=== PATIENT | male | born 1985 | race Caucasian/White ===

== ENCOUNTER 2020-08-28 15:34 | Outpatient (REF) | payer OTHER, SELFPAY | END 2020-08-28 15:35 | disposition home or self-care (01) | LOC: HO.LAB 15:34 | PROVIDERS: Visit Provider Internal Medicine | DX: Z20.828 Contact with and (suspected) exposure to other viral communicable diseases (principal) | CPT/HCPCS: C9803; U0003 ==

== ENCOUNTER 2021-06-14 16:32 | Emergency (ER) | payer OTHER, SELFPAY ==
[2021-06-14 16:34] VITALS: BP 149/82; PULSE 101; RESP 18; TEMP 36.5; O2SAT 96; BMI 49.9
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
[2021-06-14] MEDS: Ketorolac Tromethamine 15 MG/ML VIAL 30 MG IM (17:21)
== END 2021-06-14 17:36 | disposition home or self-care (01) ==
PROVIDERS: Emergency Provider Emergency Medicine
DX: M54.6 Pain in thoracic spine (principal); M54.5 Low back pain; Z79.899 Other long term (current) drug therapy
CPT/HCPCS: 96372; 99284; J1885

== ENCOUNTER 2022-05-28 11:04 | Emergency (ER) | payer OTHER, SELFPAY ==
--- NOTE | ~2022-05-28 | CT_ITS ---
EXAMINATION: CT ABDOMEN AND PELVIS WITHOUT CONTRAST CLINICAL INFORMATION: Right lower quadrant abdominal pain. Rule out appendicitis COMPARISON: CT abdomen pelvis 12/01/2010 TECHNIQUE: Multidetector volumetric imaging was performed from the superior aspect of the liver through the pubic symphysis. Sagittal and coronal reformatted images were obtained on the technologist's workstation. This CT examination was performed using dose optimization techniques as appropriate, variously including the following: *Automated exposure control *Adjustment of mA and/or kV according to patient size (this includes techniques or standardized protocols for targeted exams where dose is matched to indication/reason for exam; i.e. extremities or head) *Use of iterative reconstruction technique DLP: 1008 mGy-cm FINDINGS: LUNG BASES: The visualized lung bases are unremarkable. LIVER, GALLBLADDER, AND BILIARY TREE: The liver is normal in size, shape, and attenuation. No focal hepatic lesion or biliary ductal dilatation is present. The gallbladder is unremarkable with no evidence of radiopaque gallstones, gallbladder wall thickening, or obvious pericholecystic inflammatory changes. PANCREAS: Unremarkable. SPLEEN: Unremarkable. ADRENAL GLANDS: Unremarkable. KIDNEYS AND URETERS: Subcentimeter hypodense probable cyst in the posterolateral right midpole, too small to characterize. No other renal lesion. No radiodense renal calculi. No hydronephrosis. No perinephric collection. BLADDER: Unremarkable. GASTROINTESTINAL TRACT: The small and large bowel are unremarkable. The appendix is unremarkable. ABDOMINAL WALL: No significant hernia is appreciated. LYMPH NODES: No lymphadenopathy. VASCULAR: Normal caliber abdominal aorta. PELVIC VISCERA: Unremarkable. OSSEOUS STRUCTURES: No acute fracture or suspicious osseous lesion. Geographic serpentine sclerosis in the anterior superior right femoral head characteristic of avascular necrosis without articular surface collapse or fragmentation. 1.3 cm sclerotic lesion that may represent chronic bone infarct, bone island or healed fibrous lesion in the left femoral neck, nonaggressive appearance and unchanged since 2010. CT/CT abdomen pelvis wo IV con IMPRESSION: 1. Normal appendix. No evidence of acute appendicitis or other acute intra-abdominal process. 2. 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 No articular surface collapse or fragmentation.
--- NOTE | ~2022-05-28 | XR_ITS ---
EXAMINATION: XR LUMBOSACRAL SPINE CLINICAL INFORMATION: Fall. COMPARISON: None TECHNIQUE: Three views of the lumbosacral spine. FINDINGS: The vertebral bodies and posterior elements are normal. The disc spaces are preserved and the vertebral alignment is normal. The paraspinal soft tissues are normal. XR/XR lumbar spine 2-3V IMPRESSION: Unremarkable examination.
--- NOTE | ~2022-05-28 | XR_ITS ---
EXAMINATION: XR RIBS, BILATERAL CLINICAL INFORMATION: History of fall. Painful respirations. COMPARISON: None TECHNIQUE: 3 views of the bilateral ribs were obtained. The site of pain involving right lower lateral hemithorax was marked with a cutaneous BB marker. FINDINGS: Lungs are clear. No consolidation, pneumothorax, or pleural effusion. The cardiomediastinal silhouette and pulmonary vasculature are normal. Osseous structures are unremarkable. Ribs are intact. No fractures are identified. XR/XR ribs BI min 4V w CXR1V IMPRESSION: No radiographic evidence of any displaced rib fractures on either side. Specifically, no radiographic evidence of any hemopneumothorax or lung contusion.
[2022-05-28 11:38] VITALS: BP 154/94; PULSE 83; RESP 18; TEMP 36.7; O2SAT 99; BMI 46.5
--- NOTE | 2022-05-28 11:42 | ECG_ITS ---
Test Reason : fall Blood Pressure : / mmHG Vent. Rate : 071 BPM Atrial Rate : 071 BPM P-R Int : 166 ms QRS Dur : 086 ms QT Int : 390 ms P-R-T Axes : 047 006 043 degrees QTc Int : 423 ms Normal sinus rhythm Normal ECG When compared with ECG of 30-MAR-2004 14:00, No significant change was found Referred By: Generic ED Physician Electronically Signed By:DHARMESH JOHNSON
[2022-05-28 12:11] LABS: MANUAL DIFF FLAG NO
[2022-05-28 12:23] LABS: Basophils Percent Auto 0.3 % (0-2); Eosinophils Absolute Auto 0.2 X10*3/uL (0.0-0.4); Eosinophils Percent Auto 1.8 % (0-4); Hematocrit 44.6 % (42.0-52.0); Hemoglobin 15.1 g/dl (14.0-18.0); Imm Gran Abs Auto 0.05 X10*3/uL (0.00-0.03); Imm Gran Pct Auto 0.5 % (0.0-0.4); Lymphocytes Absolute Auto 3.2 X10*3/uL (1.2-4.9); Lymphocytes Percent Auto 31.8 % (20-40); Mean Corpuscular HGB Conc 33.9 g/dl (31.0-36.0); Mean Corpuscular Hemoglobin 29.2 pg (27.0-33.0); Mean Corpuscular Volume 86.1 fL (80.0-98.0); Mean Platelet Volume 10.2 fL (9.4-12.4); Monocytes Absolute Auto 0.7 X10*3/uL (0.1-1.2); Monocytes Percent Auto 7.3 % (2-11); Neutrophils Absolute Auto 5.8 x10*3/uL (2.0-8.3); Neutrophils Percent Auto 58.3 % (45-73); Platelet Count 247 X10*3/uL (160-400); Red Blood Count 5.18 X10*6/uL (4.60-5.80)
[2022-05-28 12:29] LABS: Alanine Aminotransferase 52 U/L (0-40); Albumin Level 4.7 g/dL (3.5-5.0); Alkaline Phosphatase 53 U/L (39-117); Anion Gap 15 (12-20); Aspartate Amino Transferase 25 U/L (5-37); Bilirubin Direct 0.3 mg/dL (0.0-0.5); Bilirubin Total 0.9 mg/dL (0.0-1.0); Blood Urea Nitrogen 10 mg/dL (9-16); Calcium 9.7 mg/dL (8.4-10.2); Carbon Dioxide 25 mmol/L (22-29); Chloride 105 mmol/L (96-108); Creatinine Clr Calc Pharmacy 133.5; Estimated Glomerular Filt Rate > 60; Glucose Random 89 mg/dL (60-115); Potassium 4.4 mmol/L (3.3-5.1); Sodium 141 mmol/L (135-145)
[2022-05-28 13:44] VITALS: BP 123/75; PULSE 62; RESP 18; TEMP 36.7; O2SAT 100
--- NOTE | 2022-05-28 17:38 | ED_ITS ---
HPI - Fall General Chief Complaint: Fall Stated Complaint: fall/severe back pain Time Seen by Provider: 05/28/22 12:18 History of Present Illness HPI Narrative: Patient complains of back pain and groin pain after a fall falling down 2 steps onto his back, there is no loss of consciousness no headache no neck pain no chest pain, no nausea or vomiting no extremity pains Related Data Previous Rx's Medication Instructions Recorded ketorolac 10 mg tablet 10 mg PO Q6H pain 5 days #20 tabs 06/14/21 methocarbamol 750 mg tablet 750 mg PO TID 5 days #15 tabs 06/14/21 acetaminophen 500 mg tablet 1,000 mg PO QID PRN pain #30 tabs 05/28/22 cyclobenzaprine 5 mg tablet 5 mg PO TID PRN muscle spasm #10 05/28/22 tabs ibuprofen 600 mg tablet 600 mg PO Q6H PRN pain #20 tabs 05/28/22 oxycodone 5 mg tablet 5 mg PO Q6H PRN pain #10 tabs 05/28/22 Allergies Allergy/AdvReac Type Severity Reaction Status Date / Time No Known Allergies Allergy Verified 06/14/21 16:33 Review of Systems Review of Systems: Positive for groin pain as well as back pain after fall Negatives are no head injury no headache no loss of consciousness no preceding dizziness no feeling faint no syncope no confusion no loss of consciousness no neck pain no numbness weakness or tingling no chest pain no shortness of breath no nausea vomiting or diarrhea no dysuria no loss of bowel or bladder control no lacerations no joint pains Yes all other systems are reviewed and are negative PMFSH Past Medical History Source: nursing notes reviewed Medical History PIYUSH on CPAP Surgical History H/O knee surgery H/O shoulder surgery Social History Social History Advance Directives: No Advance Directives Information Provided: No Physical Exam Vital Signs: Vital Signs: Last Vital Signs Temp 98.0 F 05/28/22 13:44 Pulse 62 05/28/22 13:44 Resp 18 05/28/22 13:44 BP 123/75 05/28/22 13:44 Pulse Ox 100 05/28/22 13:44 O2 Del Method 05/28/22 13:44 BMI result Body Mass Index 46.5 General appearance no acute distress Head is normocephalic atraumatic No raccoon eyes no hemotympanum no Deleon sign Neck is supple and nontender and Eyes pupils equal round react light extraocular motions are intact Chest wall nontender Chest clear to auscultation bilateral The heart no murmur The abdomen did have some right groin and right lower quadrant tenderness no r ebound no guarding Extremities full range of motion x4 without tenderness swelling or deformity The back had some right-sided lower lumbar tenderness, no focal bony tenderness Neuro gait and balance are normal, motor is 5/5 x4 , sensation is intact and symmetrical interaction both expression and comprehension are normal Course Course Course Narrative: CT scan of the abdomen was done as there was reproducible right lower quadrant tenderness, the CT scan was normal no evidence of appendicitis or any acute traumatic injury no evidence of hernia Repeat exam of the abdomen was nontender, patient was observed for several hours in the ER with no loss of appetite no nausea no vomiting, and likely has a strained muscle in the right groin Lumbar spine xr no fractures, no acute findings Right ribs x-ray no fractures no acute finding Well-appearing patient with minor discomfort in his back and groin was discharged MDM - Fall Lab Data Result diagrams: 05/28/22 11:50 05/28/22 11:50 Labs: Lab Results 05/28/22 05/28/22 Range/Units 11:50 11:50 WBC 10.0 (4.8-10.8) X10*3/uL RBC 5.18 (4.60-5.80) X10*6/uL Hgb 15.1 (14.0-18.0) g/dl Hct 44.6 (42.0-52.0) % MCV 86.1 (80.0-98.0) fL MCH 29.2 (27.0-33.0) pg MCHC 33.9 (31.0-36.0) g/dl RDW 13.0 (11.0-16.0) % Plt Count 247 (160-400) X10*3/uL MPV 10.2 (9.4-12.4) fL Immature Gran % (Auto) 0.5 H (0.0-0.4) % Neut % (Auto) 58.3 (45-73) % Lymph % (Auto) 31.8 (20-40) % [place] % (Auto) 7.3 (2-11) % Eos % (Auto) 1.8 (0-4) % Baso % (Auto) 0.3 (0-2) % Lymph # (Auto) 3.2 (1.2-4.9) X10*3/uL [place] # (Auto) 0.7 (0.1-1.2) X10*3/uL Eos # (Auto) 0.2 (0.0-0.4) X10*3/uL Baso # (Auto) 0.0 (0.0-0.2) X10*3/uL Abs Immat Gran (auto) 0.05 H (0.00-0.03) X10*3/uL Absolute Neuts (auto) 5.8 (2.0-8.3) x10*3/uL Absolute Nucleated RBC 0.000 (0.0-0.012) X10*3/uL Nucleated RBC % (auto) 0.0 (0.0-0.2) /100WBC Sodium 141 (135-145) mmol/L Potassium 4.4 (3.3-5.1) mmol/L Chloride 105 (96-108) mmol/L Carbon Dioxide 25 (22-29) mmol/L Anion Gap 15 (12-20) BUN 10 (9-16) mg/dL Creatinine 0.93 (0.5-1.4) mg/dL Estim Creat Clear Calc 133.5 Estimated GFR > 60 Random Glucose 89 (60-115) mg/dL Calcium 9.7 (8.4-10.2) mg/dL Total Bilirubin 0.9 (0.0-1.0) mg/dL Direct Bilirubin 0.3 (0.0-0.5) mg/dL AST 25 (5-37) U/L ALT 52 H (0-40) U/L Alkaline Phosphatase 53 (39-117) U/L Total Protein 8.0 (6.5-8.0) g/dL Albumin 4.7 (3.5-5.0) g/dL Discharge Plan Discharge Clinical Impression: Strain of muscle of right groin region, Back strain Patient Disposition: Home, Self-Care Additional Instructions: Imaging today did not show any broken bones in your back or your ribs, the CT of abdomen did not reveal any acute injuries, no evidence of appendicitis, no evidence of injury to the kidneys Pain is likely strained muscle in back and groin area Follow with primary doctor Return any time any worse condition or concerns Use pain medicine and muscle relaxer as needed Prescriptions: New acetaminophen 500 mg tablet 1,000 mg PO QID PRN (Reason: pain) Qty: 30 0RF cyclobenzaprine 5 mg tablet 5 mg PO TID PRN (Reason: muscle spasm) Qty: 10 0RF ibuprofen 600 mg tablet 600 mg PO Q6H PRN (Reason: pain) Qty: 20 0RF oxycodone 5 mg tablet 5 mg PO Q6H PRN (Reason: pain) Qty: 10 0RF Rx Instructions: Partial Fill upon patient request. Narcotic, no driving for 6 hours after taking this medication No Action ketorolac 10 mg tablet 10 mg PO Q6H 5 Days Qty: 20 0RF methocarbamol 750 mg tablet 750 mg PO TID 5 Days Qty: 15 0RF Interventions: ED Discharge Assessment Last Done: 05/28/22 18:11 Discharge Date/Time: 05/28/22 18:12
[2022-05-28] MEDS: oxyCODONE HCl Immed Release 5 MG TABLET PO (17:42)
[2022-05-28] MEDS: Acetaminophen 325 MG TABLET 975 MG PO (17:43)
== END 2022-05-28 18:12 | disposition home or self-care (01) ==
PROVIDERS: Emergency Provider Student in an Organized Health Care Education/Training Program
DX: M54.50 Low back pain, unspecified (principal); R10.30 Lower abdominal pain, unspecified; R07.81 Pleurodynia; Z79.899 Other long term (current) drug therapy
CPT/HCPCS: 36415; 71111; 72100; 74176; 80053; 82248; 85025; 93005; 99284

== ENCOUNTER 2022-09-06 05:52 | Emergency (ER) | payer OTHER, SELFPAY ==
--- NOTE | ~2022-09-06 | XR_ITS ---
EXAMINATION: XR CHEST CLINICAL INFORMATION: Cough. COMPARISON: Chest radiograph 05/28/2022. TECHNIQUE: 2 views of the chest were obtained. FINDINGS: No significant abnormality is noted involving the heart, lungs, mediastinum, bony thorax or soft tissues. XR/XR chest 2V IMPRESSION: Unremarkable examination.
[2022-09-06 05:53] VITALS: BP 150/77; PULSE 75; RESP 18; TEMP 36.4; O2SAT 95; BMI 45.7
--- NOTE | 2022-09-06 05:58 | ECG_ITS ---
Test Reason : CHEST PAIN Blood Pressure : / mmHG Vent. Rate : 061 BPM Atrial Rate : 061 BPM P-R Int : 170 ms QRS Dur : 084 ms QT Int : 400 ms P-R-T Axes : 053 023 023 degrees QTc Int : 402 ms Normal sinus rhythm Normal ECG When compared with ECG of 28-MAY-2022 11:43, No significant change was found Referred By: Generic ED Physician Electronically Signed By:Aki Drummond
[2022-09-06 06:10] LABS: Basophils Percent Auto 0.3 % (0-2); Eosinophils Absolute Auto 0.3 X10*3/uL (0.0-0.4); Eosinophils Percent Auto 2.7 % (0-4); Hematocrit 42.6 % (42.0-52.0); Hemoglobin 14.2 g/dl (14.0-18.0); Imm Gran Abs Auto 0.08 X10*3/uL (0.00-0.03); Imm Gran Pct Auto 0.7 % (0.0-0.4); Lymphocytes Absolute Auto 4.7 X10*3/uL (1.2-4.9); Lymphocytes Percent Auto 40.7 % (20-40); MANUAL DIFF FLAG NO; Mean Corpuscular HGB Conc 33.3 g/dl (31.0-36.0); Mean Corpuscular Hemoglobin 29.3 pg (27.0-33.0); Mean Corpuscular Volume 87.8 fL (80.0-98.0); Mean Platelet Volume 9.9 fL (9.4-12.4); Monocytes Percent Auto 8.3 % (2-11); Neutrophils Absolute Auto 5.5 x10*3/uL (2.0-8.3); Neutrophils Percent Auto 47.3 % (45-73); Platelet Count 266 X10*3/uL (160-400); Red Blood Count 4.85 X10*6/uL (4.60-5.80); Red Cell Distribution Width 13.1 % (11.0-16.0); White Blood Count 11.6 X10*3/uL (4.8-10.8)
[2022-09-06 06:13] VITALS: BP 127/69; PULSE 74; RESP 16; TEMP 36.6; O2SAT 97
[2022-09-06 06:27] LABS: Alanine Aminotransferase 32 U/L (0-40); Albumin Level 4.1 g/dL (3.5-5.0); Alkaline Phosphatase 50 U/L (39-117); Anion Gap 11 (12-20); Aspartate Amino Transferase 17 U/L (5-37); Bilirubin Total 0.3 mg/dL (0.0-1.0); Blood Urea Nitrogen 14 mg/dL (9-16); Calcium 8.8 mg/dL (8.4-10.2); Carbon Dioxide 25 mmol/L (22-29); Chloride 108 mmol/L (96-108); Creatinine Clr Calc Pharmacy 148.4; Estimated Glomerular Filt Rate > 60; Glucose Random 107 mg/dL (60-115); Potassium 3.7 mmol/L (3.3-5.1); Sodium 140 mmol/L (135-145); Total Protein 6.8 g/dL (6.5-8.0)
[2022-09-06 06:29] LABS: Troponin-I High Sensitivity 44.2 ng/L (<3.5-35.0)
--- NOTE | 2022-09-06 06:35 | ED_ITS ---
HPI - Chest Pain General Chief Complaint: Chest Pain Stated Complaint: CP Time Seen by Provider: 09/06/22 06:26 Source: patient and old records reviewed History of Present Illness HPI narrative: Patient presents complaining of chest pain. It started 2 days ago It is sharp and left-sided It is worse with deep breath and cough. No history of cardiac disease. No history of thromboembolic disease No history of hypertension diabetes or high cholesterol that he knows of. He does not use tobacco products but smokes cannabis daily. No nausea vomiting or diarrhea. Cough without sputum starting 2 days ago as well. Fevers and chills 2 days ago but none today. He went to an urgent care on Tuesday and they told him to go to the ER. He comes in today because he is not getting better. He has been vaccinated against COVID but not against influenza. Related Data Previous Rx's Medication Instructions Recorded ketorolac 10 mg tablet 10 mg PO Q6H pain 5 days #20 tabs 06/14/21 methocarbamol 750 mg tablet 750 mg PO TID 5 days #15 tabs 06/14/21 acetaminophen 500 mg tablet 1,000 mg PO QID PRN pain #30 tabs 05/28/22 cyclobenzaprine 5 mg tablet 5 mg PO TID PRN muscle spasm #10 05/28/22 tabs ibuprofen 600 mg tablet 600 mg PO Q6H PRN pain #20 tabs 05/28/22 oxycodone 5 mg tablet 5 mg PO Q6H PRN pain #10 tabs 05/28/22 ibuprofen 800 mg tablet 800 mg PO TID PRN pain #30 tabs 09/06/22 Allergies Allergy/AdvReac Type Severity Reaction Status Date / Time No Known Allergies Allergy Verified 09/06/22 05:53 Review of Systems Constitutional: Comments: Fevers and chills 2 days ago. None today ENT: Comments: Rhinorrhea Cardiovascular: Comments: Chest pain as described Respiratory: Comments: Cough without phlegm is described Gastrointestinal: Comments: No abdominal pain or nausea vomiting Musculoskeletal: Comments: No extremity pain Integumentary/Breasts: Comments: No rash Neurologic: Comments: No focal weakness PMFSH Past Medical History Medical History PIYUSH on CPAP Surgical History H/O knee surgery H/O shoulder surgery Social History Social History Smoked in Last 30 Days: No Substance Use Type: Marijuana Advance Directives: No Advance Directives Information Provided: No Physical Exam Vital Signs: Vital Signs: Last Vital Signs Temp 97.9 F 09/06/22 08:11 Pulse 58 09/06/22 08:11 Resp 18 09/06/22 08:11 BP 127/69 09/06/22 08:11 Pulse Ox 98 09/06/22 08:11 O2 Del Method 09/06/22 08:11 BMI result Body Mass Index 45.7 Const: Other: Awake and alert. No acute distress Chest: Other: Chest wall mildly tender along the sternal border. This reproduces symptoms Resp: Other: Clear and equal bilaterally. Coughing during exam. No wheezes rales rhonchi. Good air entry Cardio: Other: Regular rate and rhythm without murmurs rubs or gallops GI: Other: Soft nontender nondistended. Normoactive bowel sounds Skin: Other: Warm pink and dry without rash Neuro: Other: No obvious focal neurologic deficits Extrem: Other: No calf tenderness to palpation Course Course Course Narrative: 06:40. First troponin is 44. Will repeat Await respiratory panel Will add on chest x-ray Toradol for pain. 09:36. Repeat troponin is unchanged. Stable for discharge home Medications Administered Discontinued Medications Generic Name Dose Route Start Last Admin Trade Name Freq PRN Reason Stop Dose Admin Ketorolac Tromethamine 30 mg 09/06/22 06:35 09/06/22 08:11 Ketorolac Tromethamine 30 Mg/Ml Vial IM 09/06/22 06:36 30 mg ONCE ONE Administration Medical Decision Making Medical Decision Making [facility] Narrative: Patient with chest pain that is atypical for cardiac etiology. More likely musculoskeletal secondary to cough and URI symptoms. Will perform cardiac workup. EKG normal sinus rhythm without ischemic changes. No evidence of dysrhythmia. Differential Diagnosis Musculoskeletal chest pain Myocardial infarction Pneumonia COVID-19 Influenza RSV Other respiratory virus Lab Data Result Diagrams: 09/06/22 06:03 09/06/22 06:03 Labs: Lab Results 09/06/22 09/06/22 09/06/22 Range/Units 06:03 06:03 06:03 WBC 11.6 H (4.8-10.8) X10*3/uL RBC 4.85 (4.60-5.80) X10*6/uL Hgb 14.2 (14.0-18.0) g/dl Hct 42.6 (42.0-52.0) % MCV 87.8 (80.0-98.0) fL MCH 29.3 (27.0-33.0) pg MCHC 33.3 (31.0-36.0) g/dl RDW 13.1 (11.0-16.0) % Plt Count 266 (160-400) X10*3/uL MPV 9.9 (9.4-12.4) fL Immature Gran % (Auto) 0.7 H (0.0-0.4) % Neut % (Auto) 47.3 (45-73) % Lymph % (Auto) 40.7 H (20-40) % [place] % (Auto) 8.3 (2-11) % Eos % (Auto) 2.7 (0-4) % Baso % (Auto) 0.3 (0-2) % Lymph # (Auto) 4.7 (1.2-4.9) X10*3/uL [place] # (Auto) 1.0 (0.1-1.2) X10*3/uL Eos # (Auto) 0.3 (0.0-0.4) X10*3/uL Baso # (Auto) 0.0 (0.0-0.2) X10*3/uL Abs Immat Gran (auto) 0.08 H (0.00-0.03) X10*3/uL Absolute Neuts (auto) 5.5 (2.0-8.3) x10*3/uL Absolute Nucleated RBC 0.000 (0.0-0.012) X10*3/uL Nucleated RBC % (auto) 0.0 (0.0-0.2) /100WBC Sodium 140 (135-145) mmol/L Potassium 3.7 (3.3-5.1) mmol/L Chloride 108 (96-108) mmol/L Carbon Dioxide 25 (22-29) mmol/L Anion Gap 11 L (12-20) BUN 14 (9-16) mg/dL Creatinine 0.82 (0.5-1.4) mg/dL Estim Creat Clear Calc 148.4 Estimated GFR > 60 Random Glucose 107 (60-115) mg/dL Calcium 8.8 D (8.4-10.2) mg/dL Total Bilirubin 0.3 (0.0-1.0) mg/dL AST 17 (5-37) U/L ALT 32 (0-40) U/L Alkaline Phosphatase 50 (39-117) U/L Troponin I High Sens 44.2 H (<3.5-35.0) ng/L Total Protein 6.8 (6.5-8.0) g/dL Albumin 4.1 (3.5-5.0) g/dL Influenza Type A (PCR) (Negative) Influenza Type B (PCR) (Negative) RSV RNA Qual (PCR) (Negative) SARS-CoV-2 RNA (RT-PCR) (Negative) 09/06/22 09/06/22 Range/Units 06:03 09:00 WBC (4.8-10.8) X10*3/uL RBC (4.60-5.80) X10*6/uL Hgb (14.0-18.0) g/dl Hct (42.0-52.0) % MCV (80.0-98.0) fL MCH (27.0-33.0) pg MCHC (31.0-36.0) g/dl RDW (11.0-16.0) % Plt Count (160-400) X10*3/uL MPV (9.4-12.4) fL Immature Gran % (Auto) (0.0-0.4) % Neut % (Auto) (45-73) % Lymph % (Auto) (20-40) % [place] % (Auto) (2-11) % Eos % (Auto) (0-4) % Baso % (Auto) (0-2) % Lymph # (Auto) (1.2-4.9) X10*3/uL [place] # (Auto) (0.1-1.2) X10*3/uL Eos # (Auto) (0.0-0.4) X10*3/uL Baso # (Auto) (0.0-0.2) X10*3/uL Abs Immat Gran (auto) (0.00-0.03) X10*3/uL Absolute Neuts (auto) (2.0-8.3) x10*3/uL Absolute Nucleated RBC (0.0-0.012) X10*3/uL Nucleated RBC % (auto) (0.0-0.2) /100WBC Sodium (135-145) mmol/L Potassium (3.3-5.1) mmol/L Chloride (96-108) mmol/L Carbon Dioxide (22-29) mmol/L Anion Gap (12-20) BUN (9-16) mg/dL Creatinine (0.5-1.4) mg/dL Estim Creat Clear Calc Estimated GFR Random Glucose (60-115) mg/dL Calcium (8.4-10.2) mg/dL Total Bilirubin (0.0-1.0) mg/dL AST (5-37) U/L ALT (0-40) U/L Alkaline Phosphatase (39-117) U/L Troponin I High Sens 44.3 H (<3.5-35.0) ng/L Total Protein (6.5-8.0) g/dL Albumin (3.5-5.0) g/dL Influenza Type A (PCR) NEGATIVE (Negative) Influenza Type B (PCR) NEGATIVE (Negative) RSV RNA Qual (PCR) NEGATIVE (Negative) SARS-CoV-2 RNA (RT-PCR) NEGATIVE (Negative) Discharge Plan Discharge Clinical Impression: Atypical chest pain, Upper respiratory infection, viral Patient Disposition: Home, Self-Care Instructions: Upper Respiratory Infection (ED), Chest Wall Pain (ED) Prescriptions: New ibuprofen 800 mg tablet 800 mg PO TID PRN (Reason: pain) Qty: 30 0RF No Action acetaminophen 500 mg tablet 1,000 mg PO QID PRN (Reason: pain) Qty: 30 0RF cyclobenzaprine 5 mg tablet 5 mg PO TID PRN (Reason: muscle spasm) Qty: 10 0RF ibuprofen 600 mg tablet 600 mg PO Q6H PRN (Reason: pain) Qty: 20 0RF oxycodone 5 mg tablet 5 mg PO Q6H PRN (Reason: pain) Qty: 10 0RF Rx Instructions: Partial Fill upon patient request. Narcotic, no driving for 6 hours after taking this medication ketorolac 10 mg tablet 10 mg PO Q6H 5 Days Qty: 20 0RF methocarbamol 750 mg tablet 750 mg PO TID 5 Days Qty: 15 0RF Stand Alone Forms: Work/School Release
[2022-09-06 06:48] LABS: Influenza A PCR NEGATIVE (Negative); Influenza B PCR NEGATIVE (Negative); Resp Syncy Virus RNA Qual PCR NEGATIVE (Negative); SARS COV2 PCR INHOUSE NEGATIVE (Negative)
[2022-09-06 08:11] VITALS: BP 127/69; PULSE 58; RESP 18; TEMP 36.6; O2SAT 98
[2022-09-06] MEDS: Ketorolac Tromethamine 30 MG/ML VIAL IM (08:11)
--- NOTE | 2022-09-06 08:18 | PC.NURSE ---
patient a/ox4. susana . heart rate regular at 60 beats per minute . breathing even and unlabored . lungs clear throughout . patient has sore throat and dry non productive cough since Tuesday . skin pink warm and dry . abdomen soft not tender reports left sided chest pain that is a 7 out of 10 that feels like an old bruise . patient medicated with toridal as ordered by provider . patient on classroom monitor . patient aware of plan of care .
[2022-09-06 09:35] LABS: Troponin-I High Sensitivity 44.3 ng/L (<3.5-35.0)
[2022-09-06 10:13] VITALS: BP 140/74; PULSE 57; RESP 13; TEMP 36.8; O2SAT 99
== END 2022-09-06 10:25 | disposition home or self-care (01) ==
PROVIDERS: Emergency Provider Emergency Medicine
DX: R07.89 Other chest pain (principal); J06.9 Acute upper respiratory infection, unspecified; Z20.822 Contact with and (suspected) exposure to COVID-19; Z79.899 Other long term (current) drug therapy
CPT/HCPCS: 0241U; 36415; 71046; 80053; 84484; 85025; 93005; 96372; 99284; 99285; J1885